=== PATIENT | male | born 1990 | race Caucasian/White ===

== ENCOUNTER 2016-11-12 22:04 | Emergency (ER) | payer OTHER | END 2016-11-13 01:00 | disposition left against medical advice (07) | LOC: ER1 22:04 | DX: Z53.21 Procedure and treatment not carried out due to patient leaving prior to being seen by health care provider (principal) ==

== ENCOUNTER 2020-10-08 07:17 | Emergency (ER) | payer OTHER ==
[2020-10-08 08:19] LABS: BUN/CREATININE RATIO 12 (0-10)
[2020-10-08 08:25] LABS: HEMOGLOBIN 14.9 gm/dl (14.0-17.5); RED BLOOD COUNT 4.78 M/UL (4.20-5.50); WHITE BLOOD COUNT 12.4 K/UL (4.5-11.0)
== END 2020-10-08 11:45 | disposition home or self-care (01) ==
LOC: ER1 07:17
PROVIDERS: Emergency Medicine
DX: R10.9 Unspecified abdominal pain (principal); I10 Essential (primary) hypertension; F17.200 Nicotine dependence, unspecified, uncomplicated
CPT/HCPCS: 71045; 80053; 82550; 82553; 83690; 83874; 84484; 85025; 85379; 93005; 96374; 96375; 99285; J2270; J2405

== ENCOUNTER 2021-10-09 16:59 | Emergency (ER) | payer OTHER ==
[2021-10-09] MEDS ORDERED: CLEOCIN HCL300 MG PO (19:59)
== END 2021-10-09 20:24 | disposition home or self-care (01) ==
LOC: ER1 16:59
DX: K02.9 Dental caries, unspecified (principal); I10 Essential (primary) hypertension; F17.210 Nicotine dependence, cigarettes, uncomplicated
CPT/HCPCS: 70487; 96374; 96375; 99283; J1885; Q9967